=== PATIENT | female | born 1950 | race Hispanic/Latino ===

== ENCOUNTER 2022-11-12 06:54 | Inpatient (IN) | payer MEDICARE ==
[2022-11-07 10:28] LABS: BASOPHILS % (AUTO) 0.8 % (0.0-5.0); EOSINOPHILS % (AUTO) 2.2 % (0.0-8.0); HEMATOCRIT 43.5 % (36-48); MEAN CORPUSCULAR HEMOGLOBIN 30.9 pg (27.0-33.0); MEAN CORPUSCULAR HGB CONC 32.4 g/dL (32.0-36.0); MEAN CORPUSCULAR VOLUME 95.2 fL (79-99); MONOCYTES % (AUTO) 8.7 % (3.0-13.0); NEUTROPHILS % (AUTO) 63.1 % (40.0-77.0); PLATELET COUNT (AUTO) 101 K/uL (130-400); RED BLOOD CELL COUNT(AUTO) 4.57 MIL/uL (4.00-5.50); RED CELL DISTRIBUTION WIDTH 13.5 % (11.0-15.5)
[2022-11-07 10:37] VITALS: BP 168/65
[2022-11-07 10:46] LABS: INR 0.96 (0.85-1.15); PROTHROMBIN TIME 11.2 SEC (9.6-11.6)
[2022-11-07 10:47] LABS: PARTIAL THROMBOPLASTIN TIME 28.4 SEC (26.3-35.5)
[2022-11-07 11:03] LABS: ALBUMIN 3.4 g/dL (3.5-5.0); CREATININE 0.9 mg/dL (0.5-1.5); POTASSIUM 4.8 mmol/L (3.5-5.1); TOTAL PROTEIN, SERUM 7.9 g/dL (6.0-8.3)
[~2022-11-12] VITALS: Ht 152.4 cm; Wt 75.4 kg
[2022-11-12] VITALS (25 sets, daily range): BP systolic 105–159; BP diastolic 46–117
[~2022-11-12 06:54] MED LIST: INVANZ 1GM+NS 50ML IVPB 50 ML IV SCH
[2022-11-12] MEDS ORDERED: 0.9%NACL 1000ML 1,000 ML IV ONE (07:20)
[2022-11-12] MEDS ORDERED: MEROPENEM 1 GM VIAL ONE (07:20)
[2022-11-12] MEDS ORDERED: OMEP40CA21 PO (08:29)
[2022-11-12] MEDS ORDERED: INSU100V37 SQ (08:29)
[2022-11-12] MEDS ORDERED: NEBI10TA12 PO (08:29)
[2022-11-12] MEDS ORDERED: FERR-82 PO (08:29)
[2022-11-12] MEDS ORDERED: METF-444 PO (08:29)
[2022-11-12] MEDS ORDERED: ONDANSETRON 4MG INJ ONE (10:36)
[2022-11-12] MEDS ORDERED: DEXAMETHASONE SOD PHOSPHATE 10MG/ML 1ML VIAL ONE (10:36)
[2022-11-12] MEDS ORDERED: MIDAZOLAM HCL 1 MG/ML 2ML VIAL ONE (10:36)
[2022-11-12] MEDS ORDERED: LIDOCAINE PF 100MG/5ML (2%) SYRINGE 5ML ONE (10:36)
[2022-11-12] MEDS ORDERED: GLYCOPYRROLATE 1 MG/5 ML SYRINGE ONE (10:36)
[2022-11-12] MEDS ORDERED: SUCCINYLCHOLINE 200MG/10ML SYR ONE (10:36)
[2022-11-12] MEDS ORDERED: PROPOFOL 10 MG/ML 20ML VIAL IV ONE (10:36)
[2022-11-12] MEDS ORDERED: NEOSTIGMINE 5MG/5ML SYR IV ONE (10:36)
[2022-11-12] MEDS ORDERED: FENTANYL CITRATE PF 50 MCG/1 ML 2ML VIAL ONE (10:37)
[2022-11-12] MEDS ORDERED: ROCURONIUM 10MG/1ML SYR 10 MG/ML ML ONE (10:37)
[2022-11-12] MEDS ORDERED: BUPIVACAINE/PF 0.5% 10ML VIAL ONE (10:39)
[2022-11-12] MEDS ORDERED: LIDOCAINE 1%-EPI 1:100,000 20 ML VIAL IJ ONE (11:06)
[2022-11-12] MEDS ORDERED: BUPIVACAINE/PF 0.5% 30ML VIAL INJ ONE (11:10)
[2022-11-12] MEDS ORDERED: EPHEDRINE SULFATE 50 MG/ML AMPULE ONE (11:14)
[2022-11-12] MEDS ORDERED: INDOCYANINE GREEN 25 MG VIAL IJ ONE (13:37)
[2022-11-12] MEDS ORDERED: MEPERIDINE-PF 25 MG/ML SYG ONE (14:27)
[2022-11-12] MEDS ORDERED: LIDOCAINE HCL MPF 1% 5ML VIAL ONE (14:46)
[2022-11-12] MEDS ORDERED: ONDANSETRON 4MG INJ IVP PRN (15:30)
[2022-11-12] MEDS: LACTATED RINGERS 1000ML 1,000 ML IV SCH (15:30)
[2022-11-12] MEDS ORDERED: INSULIN HUMULIN R 100 UNIT/ML 3ML SQ PRN (15:30)
[2022-11-12] MEDS ORDERED: HYDROCODONE/ACETAMINOPHEN 5/325 MG TAB PO PRN (15:30)
[2022-11-12] MEDS: HYDROMORPHONE 0.5 MG SYG (0.5MG/0.5ML) IVP PRN (20:10)
[2022-11-13] VITALS (7 sets, daily range): BP systolic 98–144; BP diastolic 50–62
[2022-11-13 05:21] LABS: BASOPHILS % (AUTO) 0.2 % (0.0-5.0); HEMATOCRIT 37.4 % (36-48); LYMPHOCYTES % (AUTO) 14.4 % (21.0-51.0); MEAN CORPUSCULAR HEMOGLOBIN 31.4 pg (27.0-33.0); MEAN CORPUSCULAR HGB CONC 32.6 g/dL (32.0-36.0); MEAN CORPUSCULAR VOLUME 96.1 fL (79-99); MONOCYTES % (AUTO) 9.1 % (3.0-13.0); NEUTROPHILS % (AUTO) 75.8 % (40.0-77.0); PLATELET COUNT (AUTO) 115 K/uL (130-400); RED BLOOD CELL COUNT(AUTO) 3.89 MIL/uL (4.00-5.50); RED CELL DISTRIBUTION WIDTH 13.4 % (11.0-15.5); WHITE BLOOD COUNT (AUTO) 9.6 K/uL (4.8-10.8)
[2022-11-13 05:28] LABS: CREATININE 0.9 mg/dL (0.5-1.5); POTASSIUM 3.9 mmol/L (3.5-5.1)
[2022-11-13] MEDS: PANTOPRAZOLE 40 MG TAB DR PO SCH (08:22)
[2022-11-13] MEDS: HYDROMORPHONE 0.5 MG SYG (0.5MG/0.5ML) IVP PRN ×3 (08:22→19:39)
[2022-11-13] MEDS: HEPARIN 5,000 UNIT VIAL SQ SCH ×4 (08:23→20:54)
[2022-11-13] MEDS: LACTATED RINGERS 1000ML 1,000 ML IV SCH (08:29)
[2022-11-13] MEDS: NEBIVOLOL HCL 10 MG PO SCH (08:33)
[2022-11-14] MEDS: HYDROMORPHONE 0.5 MG SYG (0.5MG/0.5ML) IVP PRN ×3 (02:22→14:42)
[2022-11-14 03:30] VITALS: BP 113/50
[2022-11-14 04:56] LABS: BASOPHILS % (AUTO) 0.3 % (0.0-5.0); EOSINOPHILS % (AUTO) 0.5 % (0.0-8.0); HEMATOCRIT 36.3 % (36-48); LYMPHOCYTES % (AUTO) 24.7 % (21.0-51.0); MEAN CORPUSCULAR HEMOGLOBIN 30.8 pg (27.0-33.0); MEAN CORPUSCULAR HGB CONC 31.7 g/dL (32.0-36.0); MEAN CORPUSCULAR VOLUME 97.3 fL (79-99); MONOCYTES % (AUTO) 10.3 % (3.0-13.0); NEUTROPHILS % (AUTO) 63.7 % (40.0-77.0); PLATELET COUNT (AUTO) 104 K/uL (130-400); RED BLOOD CELL COUNT(AUTO) 3.73 MIL/uL (4.00-5.50); RED CELL DISTRIBUTION WIDTH 13.6 % (11.0-15.5); WHITE BLOOD COUNT (AUTO) 8.7 K/uL (4.8-10.8)
[2022-11-14 05:17] LABS: CREATININE 0.9 mg/dL (0.5-1.5); POTASSIUM 3.6 mmol/L (3.5-5.1)
[2022-11-14 08:00] VITALS: BP 121/49
[2022-11-14] MEDS: NEBIVOLOL HCL 10 MG PO SCH (09:00)
[2022-11-14] MEDS: PANTOPRAZOLE 40 MG TAB DR PO SCH (09:17)
[2022-11-14] MEDS: HEPARIN 5,000 UNIT VIAL SQ SCH ×2 (09:19→14:22)
[2022-11-14 12:00] VITALS: BP 124/57
[2022-11-14 16:00] VITALS: BP 146/67
== END 2022-11-14 18:00 | disposition home or self-care (01) | DRG 331 ==
LOC: DAHIP 06:54 → 3CH 15:51
PROVIDERS: ADMIT Surgery; ATTEND Surgery
PROC: 0DB Gastrointestinal System, Excision (ICD-10-PCS; 2022-11-12)
PROC: 8E0W4CZ Robotic Assisted Procedure of Trunk Region, Percutaneous Endoscopic Approach (ICD-10-PCS; principal; 2022-11-12 10:56)
DX: C18.3 Malignant neoplasm of hepatic flexure (principal); E11.9 Type 2 diabetes mellitus without complications; Z20.822 Contact with and (suspected) exposure to COVID-19; E78.5 Hyperlipidemia, unspecified; I10 Essential (primary) hypertension; K74.60 Unspecified cirrhosis of liver; Z85.038 Personal history of other malignant neoplasm of large intestine; Z90.710 Acquired absence of both cervix and uterus; K66.0 Peritoneal adhesions (postprocedural) (postinfection); J44.9 Chronic obstructive pulmonary disease, unspecified
CPT/HCPCS: 36415; 80048; 80053; 82948; 85025; 85610; 85730; 86850; 86900; 86901; 87426; 93005; 97039; A4344; G0378; J0330; J1100; J1170; J1335; J1644; J2001; J2175; J2185; J2250; J2405; J2704; J2710; J3010; J3490; J7030; J7120